=== PATIENT | male | born 1950 | race Caucasian/White ===

== ENCOUNTER 2022-07-05 23:08 | Emergency (ER) | payer OTHER ==
--- OUTSIDE RECORDS SUMMARY | 2022-07-05 23:12 | XMS REPORT | Continuity of Care Document ---
:1950 Author Organization [facility] t Address [address] [place] [address] Care Team Providers Name Role Phone Montez Hartley Primary Care Physician JOSH BYERS Attending Clinician Unavailable FOG_A_Provider Attending Clinician Unavailable Vaccine, Ang Db Cbc Fam Attending Clinician Unavailable Brittney Jimenez CRNA Attending Clinician BRITTNEY JIMENEZ Attending Clinician Unavailable Doctor Unassigned, [place] Attending Clinician Unavailable Lab, Adc Fam Pob I Attending Clinician Unavailable Stephanie YANEZPKaren Attending Clinician FOG_A_Provider Admitting Clinician Unavailable JOSH BYERS Admitting Clinician Unavailable Payers Payer Name Policy Type Policy Number Effective Date Expiration Date Roney tavares [employer]ET[employer] [id number] 2021 00:00:00 Problems Condition Condition Condition Status Onset Resolution Last Treating Co mments Source Name Details Category Date Date Treatment Clinician Date Osteoarthr Osteoarthr Problem Active A zalea itis of itis of 03-08 Orth[facility] left hip Left Hip 00:00: dic joint Joint 00 Sports Medicin e 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 03-07 [facility] friction Friction 00:00: dic syndrome Syndrome 00 Sports Medicin e Pain of Pain of Problem Active Janie left knee Left Knee 03-07 Orth ope joint Joint 00:00: dic 00 Sports Medicin e Osteoarthr Osteoarthr Problem Active Reynaldo hartman itis of itis of 03-07 Orth[facility] left knee Left Knee 00:00: dic joint Joint 00 Sports Medicin e Allergies, Adverse Reactions, Alerts Allergy Allergy Status Severity Reaction(s) Onset Inactive Treating Comm ents Source Name Type Date Date Clinician NO KNOWN Drug Active [facility] ALLERGIE Class ity of S [facility] Social History Social Habit Start Date Stop Date Quantity Comments Source History of Current smoker [facility] tobacco use [facility] Exposure to 2022-01-08 2022-01-18 Not sure [facility] SARS-CoV-2 00:00:00 13:50:00 [facility] (event) [place] Alcohol intake 2021-12-20 2021-12-20 0 /d [facility] 00:00:00 00:00:00 [facility] Sex Ass[birth year] At [birth year] [facility] 00:00:00 00:00:00 [facility] Smoking Status Start Date Stop Date Source Ex-smoker 2015-05-28 00:00:00 2015-05-28 00:00:00 [facility] Medications Ordered Filled Start Stop Current Ordering Indication Dosage Frequency Signature Comments Components Source Medication Medication Date Date Medication? Clinician (SIG) Name Name methylPREDN 2014-06 Yes 84mg Take 21 Uni vers ISolone 2-18 Tabs by ity of (MEDROL, 00:00: mouth [place] ROMARIO,) 4 mg 00 SEE-INSTRU Med ical tablets CTIONS. Branch follow package directions Diclofenac 2014-06 Yes Apply to Uni vers Sodium 2-18 area(s) 4 ity of (VOLTAREN) 00:00: (four) [place] 1 % gel 00 times Medical daily. Branch methylPREDN 2014-06 Yes 84mg Take 21 Uni vers ISolone 2-18 Tabs by ity of (MEDROL, 00:00: mouth [place] ROMARIO,) 4 mg 00 SEE-INSTRU Med ical tablets CTIONS. Branch follow package directions Diclofenac 2014-06 Yes Apply to Uni vers Sodium 2-18 area(s) 4 ity of (VOLTAREN) 00:00: (four) [place] 1 % gel 00 times Medical daily. Branch methylPREDN 2014-06 Yes 84mg Take 21 Uni vers ISolone 2-18 Tabs by ity of (MEDROL, 00:00: mouth [place] ROMARIO,) 4 mg 00 SEE-INSTRU Med ical tablets CTIONS. Branch follow package directions Diclofenac 2014-06 Yes Apply to Uni vers Sodium 2-18 area(s) 4 ity of (VOLTAREN) 00:00: (four) [place] 1 % gel 00 times Medical daily. Branch atorvastati 2014-06 Yes Univer s n (LIPITOR) 1-25 ity of 10 mg 00:00: [place] tablet 00 [facility] Branch metoprolol 2014-06 Yes Univers tartrate 1-25 ity of (LOPRESSOR) 00:00: [place] 25 mg 00 Medical tablet Branch ramipril 2014-06 Yes Univers (ALTACE) 5 1-25 ity of mg capsule 00:00: [place] 00 [facility] Branch atorvastati 2014-06 Yes Univer s n (LIPITOR) 1-25 ity of 10 mg 00:00: [place] tablet 00 [facility] Branch metoprolol 2014-06 Yes Univers tartrate 1-25 ity of (LOPRESSOR) 00:00: [place] 25 mg 00 Medical tablet Branch ramipril 2014-06 Yes Univers (ALTACE) 5 1-25 ity of mg capsule 00:00: [place] 00 [facility] Branch atorvastati 2014-06 Yes Univer s n (LIPITOR) 1-25 ity of 10 mg 00:00: [place] tablet 00 [facility] Branch metoprolol 2014-06 Yes Univers tartrate 1-25 ity of (LOPRESSOR) 00:00: [place] 25 mg 00 Medical tablet Branch ramipril 2014-06 Yes Univers (ALTACE) 5 1-25 ity of mg capsule 00:00: [place] 00 [facility] aspirin 81 aspirin 81 No 1 BID aspirin 81 Janie mg mg mg [facility] tablet,kathleen tablet,kathleen tablet,del dic yed release yed release ayed S ports Take 1 Take 1 release Medicin tablet tablet Take 1 e twice a day twice a day tablet by oral by oral twice a route with route with day by meals for meals for oral route 30 days. to 30 days. to with meals prevent a prevent a for 30 blood clot blood clot days. to prevent a blood clot atorvastati atorvastati No atorvastat Janie n 10 mg n 10 mg in 10 mg Ortho pe tablet tablet tablet dic Sports Medicin e celecoxib celecoxib No celecoxib Janie 200 mg 200 mg 200 mg Orthope capsule capsule capsule dic Take 1 Take 1 Take 1 Sports capsule capsule capsule Medici n twice a day twice a day twice a e by oral by oral day by route with route with oral route meals for meals for with meals 14 days. 14 days. for 14 days. Colace 100 Colace 100 No 1capsul BID Colace 100 Janie mg capsule mg capsule e(s) mg capsule Orthope Take 1 Take 1 Take 1 dic capsule capsule capsule Sports twice a day twice a day twice a Medicin by oral by oral day by e route as route as oral route needed. for needed. for as needed. constipatio constipatio for n n constipati on famotidine famotidine No famotidine Janie 40 mg 40 mg 40 mg Orth[facility] tablet tablet tablet dic Sports Medicin e gabapentin gabapentin No gabapentin Janie 300 mg 300 mg 300 mg Orthope capsule capsule capsule dic Take 1 Take 1 Take 1 Sports capsule capsule capsule Medici n every day every day every day e by oral by oral by oral route as route as route as needed. needed. needed. hydrocodone hydrocodone No 1 Q6H hydrocodon Janie 10 10 e 10 Orthope mg-acetamin mg-acetamin mg-acetami dic ophen 325 ophen 325 nophen 325 Sports mg tablet mg tablet mg tablet Medicin Take 1 Take 1 Take 1 e tablet tablet tablet every 6 every 6 every 6 hours by hours by hours by oral route oral route oral route as needed. as needed. as needed. for pain for pain for pain losartan 25 losartan 25 No losartan Janie mg tablet mg tablet 25 mg Orth ope tablet dic Sports Medicin e losartan 50 losartan 50 No losartan Janie mg tablet mg tablet 50 mg Orth ope tablet dic Sports Medicin e methocarbam methocarbam No 1 TID methocarba Janie ol 500 mg ol 500 mg mol 500 mg Orthope tablet Take tablet Take tablet dic 1 tablet 3 1 tablet 3 Take 1 S ports times a day times a day tablet 3 Medicin by oral by oral times a e route as route as day by needed. for needed. for oral route muscle muscle as needed. spasms spasms for muscle spasms metoprolol metoprolol No metoprolol Janie succinate succinate succinate Orth[facility] ER 25 mg ER 25 mg ER 25 mg dic tablet,exte tablet,exte tablet,ext Sports nded nded ended Medicin release 24 release 24 release 24 e hr hr hr minocycline minocycline No minocyclin Janie 100 mg 100 mg e 100 mg Orth[facility] capsule capsule capsule dic Take 1 Take 1 Take 1 Sports capsule capsule capsule Medici n every 12 every 12 every 12 e hours by hours by hours by oral route oral route oral route for 7 days. for 7 days. for 7 days. ondansetron ondansetron No ondansetro Janie HCl 4 mg HCl 4 mg n HCl 4 mg O rthope tablet Take tablet Take tablet dic 1 tablet 1 tablet Take 1 Sport s every 8 every 8 tablet Medicin hours by hours by every 8 e oral route oral route hours by as needed. as needed. oral route as needed. ramipril 5 ramipril 5 No ramipril 5 Janie mg capsule mg capsule mg capsule Orthope dic Sports Medicin e tramadol 50 tramadol 50 No 1 Q6H tramadol Janie mg tablet mg tablet 50 mg Orth ope Take 1 Take 1 tablet dic tablet tablet Take 1 Sports every 6 every 6 tablet Medicin hours by hours by every 6 e oral route oral route hours by as needed. as needed. oral route for pain for pain as needed. for pain aspirin 81 aspirin 81 No 1 BID aspirin 81 Janie mg mg mg Orth[facility] tablet,kathleen tablet,kathleen tablet,del dic yed release yed release ayed S ports Take 1 Take 1 release Medicin tablet tablet Take 1 e twice a day twice a day tablet by oral by oral twice a route with route with day by meals for meals for oral route 30 days. to 30 days. to with meals prevent a prevent a for 30 blood clot blood clot days. to prevent a blood clot atorvastati atorvastati No atorvastat Janie n 10 mg n 10 mg in 10 mg Ortho pe tablet tablet tablet dic Sports Medicin e celecoxib celecoxib No celecoxib Janie 200 mg 200 mg 200 mg Orthope capsule capsule capsule dic Take 1 Take 1 Take 1 Sports capsule capsule capsule Medici n twice a day twice a day twice a e by oral by oral day by route with route with oral route meals for meals for with meals 14 days. 14 days. for 14 days. clotrimazol clotrimazol No clotrimazo Janie e-betametha e-betametha le-betamet Orthope sone 1 sone 1 hasone 1 dic %-0.05 % %-0.05 % %-0.05 % Spo rts topical topical topical Medici n cream cream cream e Colace 100 Colace 100 No 1capsul BID Colace 100 Janie mg capsule mg capsule e(s) mg capsule Orthope Take 1 Take 1 Take 1 dic capsule capsule capsule Sports twice a day twice a day twice a Medicin by oral by oral day by e route as route as oral route needed. for needed. for as needed. constipatio constipatio for n n constipati on famotidine famotidine No famotidine Janie 40 mg 40 mg 40 mg Orth[facility] tablet tablet tablet dic Sports Medicin e gabapentin gabapentin No gabapentin Janie 300 mg 300 mg 300 mg Orthope capsule capsule capsule dic Take 1 Take 1 Take 1 Sports capsule capsule capsule Medici n every day every day every day e by oral by oral by oral route as route as route as needed. needed. needed. hydrocodone hydrocodone No 1 Q6H hydrocodon Janie 10 10 e 10 Orthope mg-acetamin mg-acetamin mg-acetami dic ophen 325 ophen 325 nophen 325 Sports mg tablet mg tablet mg tablet Medicin Take 1 Take 1 Take 1 e tablet tablet tablet every 6 every 6 every 6 hours by hours by hours by oral route oral route oral route as needed. as needed. as needed. for pain for pain for pain losartan 25 losartan 25 No losartan Janie mg tablet mg tablet 25 mg Orth ope tablet dic Sports Medicin e losartan 50 losartan 50 No losartan Janie mg tablet mg tablet 50 mg Orth ope tablet dic Sports Medicin e methocarbam methocarbam No 1 TID methocarba Janie ol 500 mg ol 500 mg mol 500 mg Orth[facility] tablet Take tablet Take tablet dic 1 tablet 3 1 tablet 3 Take 1 S ports times a day times a day tablet 3 Medicin by oral by oral times a e route as route as day by needed. for needed. for oral route muscle muscle as needed. spasms spasms for muscle spasms metoprolol metoprolol No metoprolol Janie succinate succinate succinate Orth[facility] ER 25 mg ER 25 mg ER 25 mg dic tablet,exte tablet,exte tablet,ext Sports nded nded ended Medicin release 24 release 24 release 24 e hr hr hr minocycline minocycline No minocyclin Janie 100 mg 100 mg e 100 mg Orthope capsule capsule capsule dic Take 1 Take 1 Take 1 Sports capsule capsule capsule Medici n every 12 every 12 every 12 e hours by hours by hours by oral route oral route oral route for 7 days. for 7 days. for 7 days. ondansetron ondansetron No ondansetro Janie HCl 4 mg HCl 4 mg n HCl 4 mg O rthope tablet Take tablet Take tablet dic 1 tablet 1 tablet Take 1 Sport s every 8 every 8 tablet Medicin hours by hours by every 8 e oral route oral route hours by as needed. as needed. oral route as needed. pantoprazol pantoprazol No pantoprazo Janie e 40 mg e 40 mg le 40 mg Ortho pe tablet,kathleen tablet,kathleen tablet,del dic yed release yed release ayed S ports release Medicin e ramipril 5 ramipril 5 No ramipril 5 Janie mg capsule mg capsule mg capsule Orthope dic Sports Medicin e tramadol 50 tramadol 50 No 1 Q6H tramadol Janie mg tablet mg tablet 50 mg Orth ope Take 1 Take 1 tablet dic tablet tablet Take 1 Sports every 6 every 6 tablet Medicin hours by hours by every 6 e oral route oral route hours by as needed. as needed. oral route for pain for pain as needed. for pain atorvastati atorvastati No atorvastat Janie n 10 mg n 10 mg in 10 mg Ortho pe tablet tablet tablet dic Sports Medicin e famotidine famotidine No famotidine Janie 40 mg 40 mg 40 mg Orthope tablet tablet tablet dic Sports Medicin e losartan 25 losartan 25 No losartan Janie mg tablet mg tablet 25 mg Orth ope tablet dic Sports Medicin e metoprolol metoprolol No metoprolol Janie succinate succinate succinate Orthope ER 25 mg ER 25 mg ER 25 mg dic tablet,exte tablet,exte tablet,ext Sports nded nded ended Medicin release 24 release 24 release 24 e hr hr hr ramipril 5 ramipril 5 No ramipril 5 Janie mg capsule mg capsule mg capsule Orth[facility] dic Sports Medicin e aspirin 81 aspirin 81 No 1 BID aspirin 81 Janie mg mg mg [facility] tablet,kathleen tablet,kathleen tablet,del dic yed release yed release ayed S ports Take 1 Take 1 release Medicin tablet tablet Take 1 e twice a day twice a day tablet by oral by oral twice a route with route with day by meals for meals for oral route 30 days. to 30 days. to with meals prevent a prevent a for 30 blood clot blood clot days. to prevent a blood clot atorvastati atorvastati No atorvastat Janie n 10 mg n 10 mg in 10 mg Ortho pe tablet tablet tablet dic Sports Medicin e celecoxib celecoxib No celecoxib Janie 200 mg 200 mg 200 mg Orthope capsule capsule capsule dic Take 1 Take 1 Take 1 Sports capsule capsule capsule Medici n twice a day twice a day twice a e by oral by oral day by route with route with oral route meals for meals for with meals 14 days. 14 days. for 14 days. Colace 100 Colace 100 No 1capsul BID Colace 100 Janie mg capsule mg capsule e(s) mg capsule Orth[facility] Take 1 Take 1 Take 1 dic capsule capsule capsule Sports twice a day twice a day twice a Medicin by oral by oral day by e route as route as oral route needed. for needed. for as needed. constipatio constipatio for n n constipati on famotidine famotidine No famotidine Janie 40 mg 40 mg 40 mg Orth[facility] tablet tablet tablet dic Sports Medicin e gabapentin gabapentin No gabapentin Janie 300 mg 300 mg 300 mg Orth[facility] capsule capsule capsule dic Take 1 Take 1 Take 1 Sports capsule capsule capsule Medici n every day every day every day e by oral by oral by oral route as route as route as needed. needed. needed. hydrocodone hydrocodone No 1 Q6H hydrocodon Janie 10 10 e 10 Orth[facility] mg-acetamin mg-acetamin mg-acetami dic ophen 325 ophen 325 nophen 325 Sports mg tablet mg tablet mg tablet Medicin Take 1 Take 1 Take 1 e tablet tablet tablet every 6 every 6 every 6 hours by hours by hours by oral route oral route oral route as needed. as needed. as needed. for pain for pain for pain losartan 25 losartan 25 No losartan Janie mg tablet mg tablet 25 mg Orth ope tablet dic Sports Medicin e losartan 50 losartan 50 No losartan Janie mg tablet mg tablet 50 mg Orth ope tablet dic Sports Medicin e methocarbam methocarbam No 1 TID methocarba Janie ol 500 mg ol 500 mg mol 500 mg Orth[facility] tablet Take tablet Take tablet dic 1 tablet 3 1 tablet 3 Take 1 S ports times a day times a day tablet 3 Medicin by oral by oral times a e route as route as day by needed. for needed. for oral route muscle muscle as needed. spasms spasms for muscle spasms metoprolol metoprolol No metoprolol Janie succinate succinate succinate [facility] ER 25 mg ER 25 mg ER 25 mg dic tablet,exte tablet,exte tablet,ext Sports nded nded ended Medicin release 24 release 24 release 24 e hr hr hr minocycline minocycline No minocyclin Janie 100 mg 100 mg e 100 mg Orth[facility] capsule capsule capsule dic Take 1 Take 1 Take 1 Sports capsule capsule capsule Medici n every 12 every 12 every 12 e hours by hours by hours by oral route oral route oral route for 7 days. for 7 days. for 7 days. ondansetron ondansetron No ondansetro Janie HCl 4 mg HCl 4 mg n HCl 4 mg O rthope tablet Take tablet Take tablet dic 1 tablet 1 tablet Take 1 Sport s every 8 every 8 tablet Medicin hours by hours by every 8 e oral route oral route hours by as needed. as needed. oral route as needed. ramipril 5 ramipril 5 No ramipril 5 Janie mg capsule mg capsule mg capsule Orth[facility] dic Sports Medicin e tramadol 50 tramadol 50 No 1 Q6H tramadol Janie mg tablet mg tablet 50 mg Orth ope Take 1 Take 1 tablet dic tablet tablet Take 1 Sports every 6 every 6 tablet Medicin hours by hours by every 6 e oral route oral route hours by as needed. as needed. oral route for pain for pain as needed. for pain aspirin 81 aspirin 81 No 1 BID aspirin 81 Janie mg mg mg Orthope tablet,kathleen tablet,kathleen tablet,del dic yed release yed release ayed S ports Take 1 Take 1 release Medicin tablet tablet Take 1 e twice a day twice a day tablet by oral by oral twice a route with route with day by meals for meals for oral route 30 days. to 30 days. to with meals prevent a prevent a for 30 blood clot blood clot days. to prevent a blood clot atorvastati atorvastati No atorvastat Janie n 10 mg n 10 mg in 10 mg Ortho pe tablet tablet tablet dic Sports Medicin e celecoxib celecoxib No celecoxib Janie 200 mg 200 mg 200 mg Orthope capsule capsule capsule dic Take 1 Take 1 Take 1 Sports capsule capsule capsule Medici n twice a day twice a day twice a e by oral by oral day by route with route with oral route meals for meals for with meals 14 days. 14 days. for 14 days. Colace 100 Colace 100 No 1capsul BID Colace 100 Janie mg capsule mg capsule e(s) mg capsule Orthope Take 1 Take 1 Take 1 dic capsule capsule capsule Sports twice a day twice a day twice a Medicin by oral by oral day by e route as route as oral route needed. for needed. for as needed. constipatio constipatio for n n constipati on famotidine famotidine No famotidine Janie 40 mg 40 mg 40 mg Orth[facility] tablet tablet tablet dic Sports Medicin e gabapentin gabapentin No gabapentin Janie 300 mg 300 mg 300 mg Orth[facility] capsule capsule capsule dic Take 1 Take 1 Take 1 Sports capsule capsule capsule Medici n every day every day every day e by oral by oral by oral route as route as route as needed. needed. needed. hydrocodone hydrocodone No 1 Q6H hydrocodon Janie 10 10 e 10 Orth[facility] mg-acetamin mg-acetamin mg-acetami dic ophen 325 ophen 325 nophen 325 Sports mg tablet mg tablet mg tablet Medicin Take 1 Take 1 Take 1 e tablet tablet tablet every 6 every 6 every 6 hours by hours by hours by oral route oral route oral route as needed. as needed. as needed. for pain for pain for pain losartan 25 losartan 25 No losartan Janie mg tablet mg tablet 25 mg Orth ope tablet dic Sports Medicin e losartan 50 losartan 50 No losartan Janie mg tablet mg tablet 50 mg Orth ope tablet dic Sports Medicin e methocarbam methocarbam No 1 TID methocarba Janie ol 500 mg ol 500 mg mol 500 mg Orth[facility] tablet Take tablet Take tablet dic 1 tablet 3 1 tablet 3 Take 1 S ports times a day times a day tablet 3 Medicin by oral by oral times a e route as route as day by needed. for needed. for oral route muscle muscle as needed. spasms spasms for muscle spasms metoprolol metoprolol No metoprolol Janie succinate succinate succinate [facility] ER 25 mg ER 25 mg ER 25 mg dic tablet,exte tablet,exte tablet,ext Sports nded nded ended Medicin release 24 release 24 release 24 e hr hr hr minocycline minocycline No minocyclin Janie 100 mg 100 mg e 100 mg Orth[facility] capsule capsule capsule dic Take 1 Take 1 Take 1 Sports capsule capsule capsule Medici n every 12 every 12 every 12 e hours by hours by hours by oral route oral route oral route for 7 days. for 7 days. for 7 days. ondansetron ondansetron No ondansetro Janie HCl 4 mg HCl 4 mg n HCl 4 mg O rthope tablet Take tablet Take tablet dic 1 tablet 1 tablet Take 1 Sport s every 8 every 8 tablet Medicin hours by hours by every 8 e oral route oral route hours by as needed. as needed. oral route as needed. ramipril 5 ramipril 5 No ramipril 5 Janie mg capsule mg capsule mg capsule Orth[facility] dic Sports Medicin e tramadol 50 tramadol 50 No 1 Q6H tramadol Janie mg tablet mg tablet 50 mg Orth ope Take 1 Take 1 tablet dic tablet tablet Take 1 Sports every 6 every 6 tablet Medicin hours by hours by every 6 e oral route oral route hours by as needed. as needed. oral route for pain for pain as needed. for pain Immunizations Ordered Filled Immunization Date Status Comments [facility] e Immunization Name Name SARS-COV-2 COVID-19 2022-01-18 Completed Unive rsity of MODERNA 0.25ML 00:00:00 [facility] BOOSTER VACCINE Branch SARS-COV-2 COVID-19 2021-04-27 Completed Unive rsity of MODERNA 0.25ML 00:00:00 [facility] BOOSTER VACCINE Branch influenza, influenza, 2021-03-11 Completed [facility] dic unspecified unspecified 00:00:00 Sports Medic ine formulation formulation influenza, influenza, 2021-03-11 Completed Janie [facility] dic unspecified unspecified 00:00:00 Sports Medic ine formulation formulation SARS-COV-2 COVID-19 2020-09-23 Completed Unive rsity of MODERNA VACCINE 00:00:[address] [facility] ical Branch SARS-COV-2 COVID-19 2020-08-19 Completed Unive rsity of MODERNA VACCINE 00:00:00 [place] [facility] Vital Signs Vital Name Observation Time Observation Value Comments Source Height 2022-05-09 00:00:00 70 [in_i] [facility] BMI (Body Mass 2022-05-09 00:00:00 32.3 kg/m2 [facility] Index) Sports Medicine Body Weight 2022-05-09 00:00:00 225 [lb_av] [facility] Height 2022-04-11 00:00:00 70 [in_i] [facility] BMI (Body Mass 2022-04-11 00:00:00 32.3 kg/m2 [facility] Index) Sports Medicine Body Weight 2022-04-11 00:00:00 225 [lb_av] [facility] Height 2022-03-07 00:00:00 70 [in_i] [facility] BMI (Body Mass 2022-03-07 00:00:00 32.3 kg/m2 [facility] Index) Sports Medicine Body Weight 2022-03-07 00:00:00 225 [lb_av] [facility] Procedures Procedure Date / Time Performing Clinician Source Performed XR, hip + pelvis, 2022-05-09 00:00:00 Janie [facility] hopedic unilateral, 2 or 3 view Sports M edicine XR, hip + pelvis, 2022-03-07 00:00:00 [facility]ie [facility] hopedic unilateral, 2 or 3 view Sports M edicine XR, knee, 4 or more 2022-03-07 00:00:00 [facility] view Sports Medicine SARS-COV-2 COVID-19 2022-01-18 20:46:34 Doctor Unassigned, No [facility] [place] VACCINE Name Medical Branch BOOSTER,0.25ML,IM (MODERNA) CONSENT/REFUSAL FOR 2022-01-18 18:51:57 Doctor Unassigned, No [facility] [place] DIAGNOSIS AND TREATMENT Name Medical Branch Hernia Repair [facility] Appendectomy [facility] Knee [facility] Arthroscopy/surgery Sports Medic ine Elbow Surgery [facility] Arthroplasty of Joint [facility] Ort hopedic of the Thumb Sports Medicine Repair of Tendo [facility] [place] Sports Medicine Arthroplasty of Toe [facility] Foot Surgery [facility] Lumbar Spine Surgery [facility] Plan of Care Planned Activity Planned Date Details Comments Source Future Appointment 2022-07-17 [facility] 13:15:00 [facility] Sports M edicine [address]; , [place] [address] Instructions [facility] Encounters Start End Encounter Admission Attending Care Care Encounter Source Date/Time Date/Time Type Type Clinicians Facility Department ID 2022-07-03 2022-07-03 [id number] 05:45:00 15:00:00 [place] 2022-07-03 2022-07-03 [place] [facility] [place] - Ortho [id number] Janie 00:00:00 00:00:00 MARGARET Byers [facility] MD: [id number], Sports [place], Medicin [place] e [address] , Ph. [phone] 2022-06-30 2022-06-30 Outpatient FOG_A_Provi AOSM AO [id number] Janie 00:00:00 00:00:00 suraj [id number] [facility] 2022-05-19 2022-05-19 Outpatient FOG_A_Provi AOSM AO [id number] Janie 00:00:00 00:00:00 suraj [id number] [facility]op e dic [facility] 2022-05-19 2022-05-19 Outpatient FOG_A_Provi AOSM AO [id number] Janie 00:00:00 00:00:00 suraj [id number] Orthop e dic [facility] 2022-05-09 2022-05-09 Outpatient FOG_A_Provi AOSM AO [id number] Janie 00:00:00 00:00:00 suraj [id number] [facility]op e [facility] 2022-05-09 2022-05-09 Lizet Méndez [place]OSM [place] - [place] [id number] Janie 00:00:00 00:00:00 Joan Gautam PA: [id number] FOG_Ofc dic [facility] [address], [place] [address] , Ph. [phone] 2022-04-11 2022-04-11 Outpatient FOG_A_Provi AOSM AOSM [id number] Janie 00:00:00 00:00:00 suraj [id number] Orthop e dic Sports [facility] e 2022-04-11 2022-04-11 [place]M [place] - Ortho [id number] Janie 00:00:00 00:00:00 MARGARET Byers [facility] Orthope MD: [id number] FOG_Ofc dic [facility] [address] [address], [place] [address] , Ph. [phone] 2022-04-10 2022-04-10 Outpatient FOG_A_Provi AOSM AOSM [id number] Janie 00:00:00 00:00:00 suraj [id number] Orthop e dic [facility] 2022-04-09 2022-04-09 Outpatient FOG_A_Provi AOSM AOSM [id number] Janie 00:00:00 00:00:00 suraj [id number] Orthop e dic [facility] e 2022-04-05 2022-04-05 Outpatient FOG_A_Provi AOSM AOSM [id number] Janie 00:00:00 00:00:00 suraj [id number] Orthop e dic Sports Medicin e 2022-03-27 2022-03-27 Outpatient SHERI, MHFB MHFB [id number] FB 05:27:00 14:00:00 ORANGE 2022-03-27 2022-03-27 Outpatient FOG_A_Provi AOSM AOSM [id number] Janie 00:00:00 00:00:00 suraj [id number] [facility]op [facility] 2022-03-27 2022-03-27 [place] AOSM [place] - [place] [id number] Janie 00:00:00 00:00:00 MARGARET Byers [place] [place] [facility] MD: [id number] FOG_Surgery dic [facility], [place], [place] [address] , Ph. [phone] 2022-03-22 2022-03-22 Outpatient FOG_A_Provi AOSM AOSM [id number] Janie 00:00:00 00:00:00 suraj [id number] Orthop e dic Sports Medicin e 2022-03-07 2022-03-07 Outpatient FOG_A_Provi AOSM AOSM [id number] Janie 00:00:00 00:00:00 suraj [id number] Orthop e dic [facility] Medicin e 2022-03-07 2022-03-07 [place] AO [place] - Ortho [id number] Janie 00:00:00 00:00:00 MARGARET Byers [place] Orthope MD: [id number] FOG_Ofc dic [facility] [address], [place] [address] , Ph. [phone] 2022-03-04 2022-03-04 Outpatient FOG_A_Provi AOSM AOSM [id number] Janie 00:00:00 00:00:00 suraj [id number] Orthop e dic Sports Medicin e 2022-03-03 2022-03-03 Outpatient FOG_A_Provi AOSM AOSM [id number] Janie 00:00:00 00:00:00 suraj [id number] Orthop e dic Sports Medicin e 2022-02-28 2022-02-28 Outpatient FOG_A_Provi AOSM AOSM [id number] Janie 00:00:00 00:00:00 suraj [id number] Orthop e dic Sports [facility]in e 2022-01-18 2022-01-18 Imm/Inj Vaccine, Ang Db Cbc Fam [facility] 1. [id number] Univers 13:50:00 14:00:00 Visit Brittney Jimenez [facility] [id number] [place] ADRIAN [id number] [place] BALDO?BLEA [phone] De dical [address] MEDICAL OFFICE BUILDING 2022-01-18 2022-01-18 Outpatient Jason JIMENEZ [facility] [id number] Univers 13:50:00 13:50:00 BRITTNEY frazier o f [facility] 2022-01-18 2022-01-18 Orders Doctor KRISHAN [id number] Univers 00:00:00 00:00:00 Only Unassigned, AMADO [id number] [place] [facility] [id number] [place] [phone] [address] 2020-08-02 2020-08-02 Laboratory Lab, Adc Fam Pob I [facility] [id number]. [id number] Univers 08:38:26 08:58:26 Only Karen Brown [facility] [id number] ity of [place] [id number] [place]ud[place] [phone] [address] Office [address] 2020-08-02 2020-08-02 Outpatient R [facility] [id number] Univers 08:40:00 08:40:00 ity of [facility] Results This patient has no known results.
[2022-07-06] MEDS ORDERED: Oxycodone HCl/Acetaminophen 1 TAB TAB ONE (00:17)
--- NOTE | 2022-07-06 03:10 | ER ---
Nurse's Notes [facility] Name: Nick Perez Age: 72 yrs Sex: Male : 1950 Arrival Date: 07/05/2022 Time: 23:12 Bed 8 Private MD: Diagnosis: Pain in left knee Presentation: 07/05 23:14 Chief complaint: Patient states: i had knee replacement on Sunday and not i have a kd3 sharp pain on the side of my calf. I am worried it is a blood clot. The side of my calf is a bit tender. The pain in the calf started this afternoon. Coronavirus screen: Vaccine status: Patient reports receiving the 2nd dose of the covid vaccine. Ebola Screen: No symptoms or risks identified at this time. Initial Sepsis Screen: Does the patient meet any 2 criteria? No. Patient's initial sepsis screen is negative. Does the patient have a suspected source of infection? No. Patient's initial sepsis screen is negative. Risk Assessment: Do you want to hurt yourself or someone else? Patient reports no desire to harm self or others. Onset of symptoms was July 05, 2022. 23:14 Method Of Arrival: Ambulatory kd3 23:14 Acuity: ROSA 3 kd3 Triage Assessment: 23:19 General: Appears in no apparent distress. Behavior is calm, cooperative. Pain: kd3 Complains of pain in medial aspect of left calf and left irby. Historical: - Allergies: 23:19 No Known Allergies; kd3 - Home Meds: 23:19 metoprolol tartrate 25 mg Oral tab 1 tab once daily [Active]; kd3 23:21 Lipitor 10 mg Oral tab 1 tab once daily [Active]; omeprazole 40 mg Oral cpDR 1 cap once kd3 daily [Active]; - PSHx: 23:19 knee replacement; kd3 - Immunization history:: Adult Immunizations up to date. - Social history:: Smoking status: Patient denies any tobacco usage or history of. Screenin:39 [facility] ED Fall Risk Assessment (Adult) History of falling in the last 3 months, kl including since admission No falls in past 3 months (0 pts) Confusion or Disorientation No (0 pts) Intoxicated or Sedated No (0 pts) Impaired Gait Yes (1 pt) Mobility Assist Device Used Yes (1 pt) Altered Elimination No (0 pt) Score/Fall Risk Level 0 - 2 = Low Risk Oriented to surroundings, Maintained a safe environment, Hourly rounding (assess needs \T\ fall precautionary measures) done, Used ambulatory aids as needed (educated on \T\ assisted with). Abuse screen: Denies threats or abuse. Nutritional screening: On. Tuberculosis screening: No symptoms or risk factors identified. Assessment: 23:37 General: Appears uncomfortable, well groomed, well developed, Behavior is calm, kl cooperative. Pain: Complains of pain in medial aspect of left calf Pain currently is 2 out of 10 on a pain scale. at worst was 9 out of 10 on a pain scale. Quality of pain is described as aching, sharp, Pain began 1 hour ago. Is intermittent, lasting a few seconds. Neuro: No deficits noted. Cardiovascular: No deficits noted. Respiratory: No deficits noted. GI: No deficits noted. : No deficits noted. Musculoskeletal: Circulation, motion, and sensation intact. Vital Signs: 23:14 BP 173 / 72; Pulse 78; Resp 19; Temp 97.9(TE); Pulse Ox 97% on R/A; Weight 111.13 kg; kd3 Height 5 ft. 10 in. (177.80 cm); Pain 9/10; 23:38 BP 136 / 75; Pulse 82; Pulse Ox 95% on R/A; kl 07/06 00:56 BP 115 / 56; Pulse 63; Resp 18; Pulse Ox 99% ; ll3 03:21 BP 136 / 83; Pulse 63; Resp 17; Pulse Ox 99% on R/A; ll3 07/05 23:14 Body Mass Index 35.15 (111.13 kg, 177.80 cm) kd3 ED Course: 07/05 23:12 Patient arrived in ED. ja2 23:19 Triage completed. kd3 23:21 Arm band placed on right wrist. kd3 23:39 No provider procedures requiring assistance completed. kl 23:40 Mykel Rea MD is Attending Physician. bs3 07/06 00:10 US Extremity Venous Unilateral Ltd In Process Unspecified. EDMS 00:53 XRAY Knee LEFT 3 view In Process Unspecified. EDMS 03:22 Patient has correct armband on for positive identification. Placed in gown. Bed in low ll3 position. Call light in reach. Side rails up X 1. Adult w/ patient. 03:22 Patient did not have IV access during this emergency room visit. ll3 Administered Medications: 00:16 Drug: Percocet (oxyCODONE-acetaminophen) (5 mg-325 mg) 1 tabs Route: PO; elena 03:22 Follow up: Response: No adverse reaction ll3 Medication: 03:22 VIS not applicable for this client. ll3 Outcome: 03:10 Discharge ordered by . bs3 03:22 Discharged to home ambulatory, with significant other. ll3 03:22 Condition: stable 03:22 Discharge instructions given to patient, significant other, Instructed on discharge instructions, follow up and referral plans. Demonstrated understanding of instructions, follow-up care. 03:23 Patient left the ED. ll3 Signatures: Dispatcher [employer] EDDasha Cole RN RN kl Alexander, Jessica ja2 Loubet, Lynsea, RN RN ll3 Roselyn Alexis RN RN kd3 Mykel Rea MD MD bs3
--- NOTE | 2022-07-06 03:10 | EDPHYS ---
Physician Documentation [facility] Name: Nick Perez Age: 72 yrs Sex: Male : 1950 Arrival Date: 07/05/2022 Time: 23:12 Bed 8 Private MD: ED Physician Mykel Rea HPI: 07/06 03:10 This 72 yrs old Male presents to ER via Ambulatory with complaints of Post bs3 Surgical Pain, Knee Pain. 01:11 The patient presents with pain, that is acute. Patient left knee replacement presents bs3 with pain just below his left knee it started suddenly and was sharp in nature he is taking his medications as prescribed after his surgery and that he is taking aspirin as well he denies any associated swelling he denies any redness discharge or anything else bothering him the pain is moderate nonradiating it is located in the anterior left side of his leg just below the knee. Historical: - Allergies: 07/05 23:19 No Known Allergies; kd3 - Home Meds: 23:19 metoprolol tartrate 25 mg Oral tab 1 tab once daily [Active]; kd3 23:21 Lipitor 10 mg Oral tab 1 tab once daily [Active]; omeprazole 40 mg Oral cpDR 1 cap once kd3 daily [Active]; - PSHx: 23:19 knee replacement; kd3 - Immunization history:: Adult Immunizations up to date. - Social history:: Smoking status: Patient denies any tobacco usage or history of. ROS: 07/06 01:11 Constitutional: Negative for fever, chills Eyes: Negative for injury, pain, redness, bs3 and discharge, Cardiovascular: Negative for chest pain, palpitations, and edema, Respiratory: Negative for shortness of breath, cough, wheezing Abdomen/GI: Negative for abdominal pain, nausea, vomiting, diarrhea Skin: Negative for injury, rash, and discoloration, Neuro: Negative for headache, weakness, numbness, tingling, and seizure. Exam: 01:11 Constitutional: This is a well developed, well nourished patient who is awake, alert, bs3 and in no acute distress. Head/Face: Normocephalic, atraumatic. Eyes: Pupils equal round and reactive to light, extra-ocular motions intact. Lids and lashes normal. ENT: mmm, no posterior phyarngeal erythema Cardiovascular: Regular rate and rhythm with a normal S1 and S2. symmetric pulses in upper extremities Respiratory: Lungs have equal breath sounds bilaterally, clear to auscultation, no respiratory distress Abdomen/GI: Soft, non-tender, no rebound or guarding MS/ Extremity: Incision is covered with a bandage and is clean dry and intact there is no erythema there is no fluctuance or discharge he has pain to palpation just below the knee on the lateral anterior aspect he has mild swelling of this area as well without associated erythema Neuro: Awake and alert, GCS 15, oriented to person, place, time, and situation. Cranial nerves II-XII grossly intact. Motor strength 5/5 in all extremities. Sensory grossly intact. Vital Signs: 07/05 23:14 BP 173 / 72; Pulse 78; Resp 19; Temp 97.9(TE); Pulse Ox 97% on R/A; Weight 111.13 kg; kd3 Height 5 ft. 10 in. (177.80 cm); Pain 9/10; 23:38 BP 136 / 75; Pulse 82; Pulse Ox 95% on R/A; kl 07/06 00:56 BP 115 / 56; Pulse 63; Resp 18; Pulse Ox 99% ; ll3 03:21 BP 136 / 83; Pulse 63; Resp 17; Pulse Ox 99% on R/A; ll3 07/05 23:14 Body Mass Index 35.15 (111.13 kg, 177.80 cm) kd3 MDM: 07/05 23:40 Patient medically screened. bs3 07/06 01:11 Differential diagnosis: contusion, abrasion, Sepsis, compartment syndrome. Test bs3 considered but Not performed: Labs: considered ck but his compartment is soft. ED course: Rule out deep vein thrombosis unlikely compartment syndrome given focal area of pain and his compartment is soft will rule out fracture although this is unlikely as well x-ray reviewed by myself negative for acute fracture/dislocation his ultrasound was negative for acute pathology advised to treat pain follow-up with his orthopedic. 03:11 Data reviewed: vital signs, nurses notes. ED course: pt with neg workup, incidental bs3 bakers cyst which I discussed with the patient, advised f/u with his orthopedist tomorrow. . 07/05 23:27 Order name: US Extremity Venous Unilateral Ltd kb 07/05 23:58 Order name: XRAY Knee LEFT 3 view bs3 Administered Medications: 00:16 Drug: Percocet (oxyCODONE-acetaminophen) (5 mg-325 mg) 1 tabs Route: PO; elena 03:22 Follow up: Response: No adverse reaction ll3 Disposition Summary: 07/06/22 03:10 Discharge Ordered Location: Home bs3 Problem: new bs3 Symptoms: are resolved bs3 Condition: Stable bs3 Diagnosis - Pain in left knee bs3 Followup: bs3 - With: Private Physician - When: As needed - Reason: Re-evaluation by your physician Discharge Instructions: - Discharge Summary Sheet bs3 - Acute Knee Pain, Adult bs3 Forms: - Medication Reconciliation Form bs3 - Thank You Letter bs3 - Antibiotic Education bs3 - Prescription Opioid Use bs3 Signatures: Dispatcher [employer] Dasha Sommer, RN Roselyn Moscoso RN RN kd3 Mykel Rea MD MD bs3 Robert Fernandez RN 3
[2022-07-06 04:39] VITALS: TEMP 97.9
[2022-07-06 04:41] VITALS: O2SAT 99
[2022-07-06 04:42] VITALS: BP 136/83
--- NOTE | 2022-07-06 13:15 | RAD REPORT ---
EXAM DESCRIPTION: US Duplex Left Lower Extremity Veins CLINICAL HISTORY: The patient is 72 years old and is Male; PAIN TECHNIQUE: Real-time duplex ultrasound scan of the left lower extremity veins integrating B-mode two -dimensional vascular structure, Doppler spectral analysis, color flow Doppler imaging and compressio n. COMPARISON: No relevant prior studies available. FINDINGS: DEEP VEINS: Unremarkable. No DVT in the visualized common femoral, femoral, proximal deep femoral or popliteal veins. The veins demonstrate normal color flow, are normally compressible , with normal phasic flow and/or augmentation response. SUPERFICIAL VEINS: Unremarkable. No thrombus in the visualized great saphenous vein. SOFT TISSUES: Complex appearing left-sided Perez's cyst measuring approximately 2.1 x 1.5 cm in sa gittal dimension. IMPRESSION: 1. No DVT in the left lower extremity veins. 2. Complex appearing left-sided Perez's cyst. Electronically signed by: Magdy Raya MD 07/06/2022 12:18 AM RESTAURANT AND BAR MANAGER Due to temporary technical issues with the PACS/Fluency reporting system, reports are being signed by the in house radiologists without review as a courtesy to insure prompt reporting. The interpreting radiologist is fully responsible for the content of the report.
--- NOTE | 2022-07-06 13:26 | RAD REPORT ---
EXAM DESCRIPTION: XR Left Knee, 3 Views CLINICAL HISTORY: The patient is 72 years old and is Male; PAIN [facility] MAIN TECHNIQUE: Three views of the left knee. COMPARISON: No relevant prior studies available. FINDINGS: BONES/JOINTS: Total left knee arthroplasty with no evidence of hardware fracture, failu re, or loosening. Sclerotic appearance of the patella suggesting remote or chronic traumatic etiology. No acute osseous fracture. No subluxation or dislocation. No joint effusion. SOFT TISSUES: Suspected loose ossified bodies demonstrated within the posterior left knee, presuma fabiano within a Perez's cyst versus a popliteal fossa hematoma. Of uncertain but doubtful clinical signi ficance. IMPRESSION: 1. No acute findings in the left knee. 2. Suspected loose ossified bodies demonstrated within the posterior left knee, presumably within a Perez's cyst versus a remote popliteal fossa hematoma. Of uncertain but doubtful clinical significan ce in the absence of symptoms (point tenderness, mass effect or compressive symptoms, etc). If clinic ally indicated, this could be further characterized by nonemergent left knee MRI. Electronically signed by: Magdy Raya MD 07/06/2022 1:13 AM INSTRUCTIONAL LEADER Due to temporary technical issues with the PACS/Fluency reporting system, reports are being signed by the in house radiologists without review as a courtesy to insure prompt reporting. The interpreting radiologist is fully responsible for the content of the report.
== END 2022-07-06 03:23 | disposition home or self-care (01) ==
LOC: ER 23:08
DX: M25.562 Pain in left knee (principal); Z96.652 Presence of left artificial knee joint
CPT/HCPCS: 93971; 99283